=== PATIENT | female | born 1995 | race Caucasian/White ===

== ENCOUNTER 2018-09-30 11:44 | Inpatient (IN) | payer OTHER ==
--- NOTE | 2018-09-30 12:03 | ED ---
Complex/Multi-Sys Presentation - HPI Summary HPI Summary: A 23 y/o F presents to ED with AMS worsening in the past few days. 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 She went to the ED there for her sleep problems and disorganized thoughts, and she was admitted on 09/06/18. She was discharged on 09/25/18 and her parents brought her back home to [place]. At the time of release, her mother says she was OK but anxious. Since her release and traveling back to [place], pt has declined. At bedside, she is drooling, tremulous diffusely, and very rigid. Pt whimpers at bedside and says her tongue is frozen. She was started on Abilify, Trazodone, Lorazepam and Hydroxyzine when she was released from the [place] ED. Her mom did not give the patient the Abilify this AM. PMHx: season allergies. - History Of Current Complaint Chief Complaint: EDAltMentalStatus Time Seen by Provider: 09/30/18 11:54 Hx Obtained From: Family/Mail Handler Sorter - mother, Medical Records Hx From Patient Unobtainable Due To: Altered Mental Status Onset/Duration: Gradual Onset, Lasting Days, Still Present Timing: Constant Severity Currently: Moderate Severity Initially: Moderate Associated Signs And Symptoms: Positive: Other - pos: tremulous, very rigid, drooling, tongue "frozen" Related History: Recent Hospitalization - Allergies/Home Medications Allergies/Adverse Reactions: Allergies Allergy/AdvReac Type Severity Reaction Status Date / Time No Known Allergies Allergy Verified 09/30/18 11:51 Home Medications: Home Medications ARIPiprazole [Aripiprazole] 20 mg PO DAILY 09/30/18 [History Confirmed 09/30/18] LORazepam [Lorazepam] 1 mg PO DAILY PRN 09/30/18 [History Confirmed 09/30/18] hydrOXYzine HCL TAB* [Atarax 25 MG TAB*] 25 mg PO BID PRN 09/30/18 [History Confirmed 09/30/18] traZODone TAB* [Desyrel TAB*] 200 mg PO BEDTIME PRN 09/30/18 [History Confirmed 09/30/18] PMH/Surg Hx/FS Hx/Imm Hx Previously Healthy: Yes Respiratory History: Reports: Hx Seasonal Allergies Opthamlomology History: Denies: Hx Legally Blind EENT History: Denies: Hx Deafness Infectious Disease History: No Infectious Disease History: Denies: Traveled Outside the [place] in Last 30 Days - Family History Known Family History: Positive: Other - [place] - grandparent - Social History Occupation: Student Lives: With Family Review of Systems Positive: Other - pos: drooling ENT: Other - pos: tongue "frozen" Musculoskeletal: Other - pos: tremulous, very rigid All Other Systems Reviewed And Are Negative: Yes Physical Exam - Summary Physical Exam Summary: Appearance: Well-appearing, Slender, sitting on stretcher in rigid posture with arms out and elbows flexed to 90 degrees Skin: Warm, dry, no obvious rash Eyes: sclera anicteric, no conjunctival pallor, pupils are 3mm and reactive, EOMI, no nystagmus ENT: mucous membranes moist, pharynx appears normal Neck: Supple, nontender Respiratory: Clear to auscultation, no signs of respiratory distress Cardiovascular: Tachy, Normal S1, S2. No murmurs. Normal distal pulses in tibial and radial bilaterally. Abdomen: Soft, nontender, normal active bowel sounds present Musculoskeletal: Normal, Strength/ROM Intact Neurological: awake & alert. Patient in general has a rigid posture, there is some resistance to extension of elbows, no cognitive wheel rigidity is noticed. No focal motor deficits noted. Mental status is deficient, patient is able to answer simple question and follow commands, but speech is very soft and nearly inaudible. Speech is slow and mildly dysarthric. Psychiatric: affect is normal, does not appear anxious or depressed Triage Information Reviewed: Yes Vital Signs On Initial Exam: Initial Vitals Temp Pulse Resp BP Pulse Ox 99.1 F 127 18 147/91 98 09/30/18 11:46 09/30/18 11:46 09/30/18 11:46 09/30/18 11:46 09/30/18 11:46 Vital Signs Reviewed: Yes Diagnostics - Vital Signs Vital Signs Temp Pulse Resp BP Pulse Ox 09/30/18 11:46 99.1 F 127 18 147/91 98 - Laboratory Result Diagrams: 09/30/18 12:33 09/30/18 12:33 Lab Statement: Any lab studies that have been ordered have been reviewed, and results considered in the medical decision making process. - EKG 1210 Cardiac Rate: Tachycardia EKG Rhythm: Sinus Tachycardia Summary of EKG Findings: Borderline RAD. Complex Multi-Symp Course/Dx Course Of Treatment: Pt is a 23 y/o F presenting with AMS worsening in recent days. 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 Started on Abilify, Trazodone, Lorazepam and Hydroxyzine during hospital stay. Released on 09/25 and brought home to [place]. Per mom, pt is declining, and at bedside, pt is drooling, diffusely tremulous, very rigid, and nearly mute. Pheysical exam found patient in general has a rigid posture, there is some resistance to extension of elbows, no cognitive wheel rigidity is noticed. No focal motor deficits noted. Mental status is deficient, patient is able to answer simple question and follow commands, but speech is very soft and nearly inaudible. Speech is slow and mildly dysarthric. Clinically she appears to be suffering from NMS. Fortunately her lab studies, in particular renal function and CK level, are normal. She does require supportive care and observation, will be admitted to hospitalist service. Labwork is unremarkable. Tox screen is negative. . Consulted with Dr. Baxter, hospitalist, who will admit patient. - Diagnoses Provider Diagnoses: NMS (neuroleptic malignant syndrome) - Physician Notifications Discussed Care Of Patient With: Chen Baxter - hospitalist Time Discussed With Above Provider: 14:09 Instructed by Provider To: Admit As Inpatient Discharge - Sign-Out/Discharge Documenting (check all that apply): Patient Departure - ADMIT Patient Received Moderate/Deep Sedation with Procedure: No - Discharge Plan Condition: Fair Disposition: ADMITTED TO [facility] - Billing Disposition and Condition Condition: FAIR Disposition: Admitted to [facility] - Attestation Statements Document Initiated by Scribe: Yes Documenting Scribe: Evelyn Gutierrez Provider For Whom Scribe is Documenting (Include Credential): Dr. Romero Maldonado MD Scribe Attestation: Evelyn Ponce, peggyed for Dr. Romero Maldonado MD on 09/30/18 at 1917. Scribe Documentation Reviewed: Yes Provider Attestation: The documentation as recorded by the Evelyn chau accurately reflects the service I personally performed and the decisions made by me, Dr. Romero Maldonado MD Status of Scribe Document: Viewed
[2018-09-30] MEDS ORDERED: LORazepam INJ* 2 MG/ML 1 ML VIAL IV PUSH ONE (12:06)
[2018-09-30] MEDS ORDERED: NS 0.9% 1000 ML** 2,000 ML IV ONE (12:20)
[2018-09-30 13:08] LABS: ABS Basophils 0 10^3/ul (0-0.2); ABS Eosinophils 0 10^3/ul (0-0.6); ABS Lymphocytes 0.7 10^3/ul (1.0-4.8); ABS Monocytes 0.6 10^3/ul (0-0.8); ABS Neutrophils 2.3 10^3/ul (1.5-7.7); ABS Nucleated RBC 0 10^3/ul; Eosinophil % 0.2 %; Hematocrit 40 % (33-41); Hemoglobin 13.9 g/dL (12.0-16.0); Lymphocyte % 18.2 %; Mean Corpuscular HGB Conc 35 g/dL (31-36); Mean Corpuscular Hemoglobin 33 pg (27-31); Mean Corpuscular Volume 95 fL (80-97); Mean Platelet Volume 6.5 fL (7.4-10.4); Nucleated Red Blood Cells % 0.1; Platelet Count 303 10^3/uL (150-450); Red Blood Count 4.16 10^6 /uL (3.70-4.87); Red Cell Distribution Width 12 % (10.5-15); White Blood Count 3.6 10^3/uL (3.5-10.8)
[2018-09-30 13:28] LABS: Acetaminophen < 15 mcg/mL; Alcohol < 10 mg/dL (<10); Salicylate < 2.50 mg/dL (<30)
[2018-09-30 13:32] LABS: HCG Pregnancy < 0.60 mIU/mL
[2018-09-30 13:33] LABS: ALT 14 U/L (7-52); AST 20 U/L (13-39); Albumin 4.7 g/dL (3.2-5.2); Albumin/Globulin Ratio 1.9 (1-3); Alkaline Phosphatase 46 U/L (34-104); Anion Gap 9 mmol/L (2-11); BUN/Creatinine Ratio 14.3 (8-20); Blood Urea Nitrogen 10 mg/dL (6-24); CO2 Carbon Dioxide 26 mmol/L (22-32); Calcium 9.7 mg/dL (8.6-10.3); Chloride 102 mmol/L (101-111); Creatine Kinase 173 U/L (10-223); EGFR African American 124.4 (>60); EGFR Non-African American 102.8 (>60); Globulin 2.5 g/dL (2-4); Glucose 102 mg/dL (70-100); Potassium 3.8 mmol/L (3.5-5.0); Sodium 137 mmol/L (135-145); Total Protein 7.2 g/dL (6.4-8.9)
[2018-09-30] MEDS ORDERED: Acetaminophen TAB* 325 MG PO PRN (15:17)
[2018-09-30] MEDS ORDERED: NS 0.9% 1000 ML** 1,000 ML IV SCH (15:30)
[2018-09-30] MEDS ORDERED: diPHENhydraMINE IV* 50 MG/ML 1 ml VIAL (BENADRYL) IV ONE ×2 (15:56→16:05)
[2018-09-30] MEDS ORDERED: diPHENhydraMINE IV* 25 MG in NS 0.9% 50 ML* 50 ML IVPB PRN (16:33)
[2018-09-30] MEDS: Enoxaparin(*) 40 MG/0.4 ML SYR SUBCUT SCH (17:45)
[2018-09-30] MEDS: Trihexyphenidyl TAB* 2 MG PO PRN (20:17)
--- NOTE | 2018-09-30 20:41 | HP ---
CC: Aby Wilson MD HISTORY AND PHYSICAL: DATE OF ADMISSION: 09/30/18 PRIMARY CARE PROVIDER: Aby Wilson MD HEALTHCARE PROXY: The patient's parents, mother, Alexia and father, Boogie CODE STATUS: Full. Source: Most information obtained from parents at bedside, as pt sleeping after lorazepam. CHIEF COMPLAINT: Muscle stiffness, restlessness, drooling for 5 days. HISTORY OF PRESENT ILLNESS: Ms. Mills is a 23-year-old healthy woman who is presenting after a psychiatric hospitalization with new onset of confusion, drooling, muscle stiffness, and restlessness for 5 days. 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 She had reported to them that she was not sleeping very much and was working on her studies at most hours of the day. She also expressed to them various worries or fears. When asking parents to clarify, they report she would state things like "I don't know who I can trust" or "I don't know what to do." Given the concerns from her peers, she was taken to emergency room on 09/06/18, which is approximately 3 weeks ago. Her parents drove out to [place] and on that day, she was admitted to the adult psychiatric unit for concern for bipolar with psychotic features. During the hospitalization, which lasted until 5 days ago, she had initially been given Seroquel, but was switched to Abilify. She had also been started on trazodone 100 mg nightly for sleep with hydroxyzine and lorazepam p.r.n. for anxiety. Since she was discharged 5 days ago, she has been staying with her parents in [place], [place] and they report that over the last 5 days, she has become progressively more agitated and restless. Her speech was initially slurred, but she eventually just stopped talking as much. She had progressive muscle stiffness interfering with her ability to walk. Given the progression of her symptoms, she was brought to the emergency room. In the emergency room, she was noted to be diffusely tremulous and very rigid. She stated that her "tongue is frozen". She was given 1 L of fluids. She was without focal motor deficits and was able to answer simple questions and follow commands, although she was speaking at a low voice. As her lab work was unremarkable and her tox screen was negative, she was admitted to the hospital for concern for neuroleptic malignant syndrome. She was given 1 dose of 1 mg lorazepam in the ER. PAST MEDICAL HISTORY: 1. Subclinical hypothyroidism. 2. Childhood asthma. MEDICATIONS: Since discharge 5 days ago: 1. Abilify 20 mg daily. 2. Trazodone 100 mg nightly. 3. Hydroxyzine 25 mg q.6 hours p.r.n. anxiety. 4. Lorazepam 1 mg q.12 hours p.r.n. anxiety. ALLERGIES: No known drug allergies. 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 Denies tobacco, alcohol, or other drugs. 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 FAMILY HISTORY: Paternal grandfather with AK, now status post stent. PHYSICAL EXAMINATION GENERAL: Tired-appearing woman, alert and interactive to voice, answers questions appropriately, A and O x3. VITAL SIGNS: afebrile, heart rate low 100s, blood pressure 136/85, respiratory rate 12, oxygen saturation 100% on room air. HEENT: Moist mucous membranes. NECK: Supple. Able to touch chin to chest without pain. LUNGS: Clear to auscultation bilaterally. HEART: Regular rhythm. Tachycardic. No murmurs, gallops, rubs. ABDOMEN: Soft, nontender, nondistended. EXTREMITIES: Warm, well perfused. No edema. NEURO: Notable for diffuse rigidity. Occasional lower extremity myoclonic jerks. Dorsiflexion bilaterally with few beats of clonus. Upper extremities without cogwheel rigidity, but with resistance to flexion and extension of elbows. Strength in upper and lower extremities 5/5 bilaterally. Able to follow commands. PSYCH: Responds to questions appropriately. Has a normal affect and does not appear anxious. Euthymic. SKIN: Warm. No diaphoresis. DIAGNOSTIC STUDIES/LAB DATA: Labs reviewed and significant for normal white blood cells, normal BMP, normal creatine kinase, negative toxicology screen. EKG with sinus tachycardia 107. ASSESSMENT AND PLAN: A 23-year-old previously healthy woman with recent psychiatric admission for new onset bipolar with psychotic features who is presenting after a few weeks on antipsychotics with confusion, drooling, muscle rigidity, and restlessness, found in the ER with new tachycardia and hypertension without concerning lab abnormalities. 1. Muscle rigidity and associated symptoms. Highest on the differential is acute dystonic reaction given the patient's primary symptom is diffuse muscle stiffness, also involving the tongue. However, would not want to miss diagnosis of neuroleptic malignant syndrome, although this is less likely given lack of fever and diaphoresis, and normal CK. However, antipsychotics taken with serotonin modulators does increase the risk for NMS. We will hold her antipsychotic and trazodone. The patient has been given a dose of lorazepam in the emergency room without significant change. We will now trial dose of Benadryl 50 mg IV and follow response. Neuro has been consulted. We will continue to monitor vital signs and neuro exam closely, and check routine labs tomorrow morning as well. At this time, very low suspicion for infection as the patient had no prodrome including fever, headaches, or other viral symptoms and is without meningeal signs. 2. DVT prophylaxis. Lovenox subcu daily. 3. The patient is full code. TIME SPENT: Approximately 60 minutes spent on admission of this patient, more than half of which was spent at bedside for interview and exam. [id number]/[facility] #: [id number] BETHESDA HOSPITALEmma
--- NOTE | 2018-09-30 21:40 | CONS ---
NEUROLOGY CONSULTATION: DATE OF CONSULT: 09/30/18 LOCATION: She is in emergency room to be admitted. REFERRING PROVIDER: Dr. Baxter. CHIEF COMPLAINT: Stiffness, inability to walk. 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 According to the history from the family and the patient, she was working on a project and she stayed up 3 nights in a row. She developed a psychiatric decompensation and was admitted to mental health unit in [place], [place] for 2 weeks. She was started on several mediations. Near the end of hospital mental health admission, she started to develop some tremor and stiffness. It is worsened over the several days that she has been at home in [place]. She was discharged from the hospital in [place] on 09/25/18. Her discharge medications were Abilify 20 mg p.o. daily, Atarax 25 mg p.o. b.i.d. p.r.n., trazodone 200 mg p.o. q.h.s., lorazepam 1 mg p.o. as needed for anxiety. ALLERGIES: She does not have any drug allergies. REVIEW OF SYSTEMS: Negative for recent illnesses. No fevers. She feels that her jaw, neck, and legs are tight. She does not have any headache. No recent fevers or infections. No history of epilepsy or head trauma. No history of cerebrovascular disease. No prior history of psychiatric disease prior to the last month. PHYSICAL EXAM: On examination, she is well nourished and well hydrated. Temperature 97.9, blood pressure 127/81, heart rate running 90 to 110 in sinus on the monitor. Respiratory rate is 17 and oxygen saturation is 100% on room air. Skin is warm and dry. Heart tones are normal. Neurological Exam: Pupils react equally from 5 down to 2.5 mm. Eyes movements are normal. Facial musculature is symmetric with grade 3 hypomimia. Her jaw is held partly open and she has sialorrhea. Speech is soft and slightly dysarthric. Facial sensation is intact. Her motor exam shows cogwheel rigidity of the upper extremities and lower extremities. Lower extremities have more tone than the uppers. There is a fine suspension tremor in both hands and in her feet. Finger taps are slow, but symmetrical in the hands. She is alert and oriented and an excellent detail historian. Memory is intact and language fluent. DIAGNOSTIC STUDIES/LAB DATA: Includes a normal chemistry profile other than borderline glucose of 102, negative serum alcohol level, normal CBC. IMPRESSION: Impression is that of extrapyramidal side effects from her dopamine celeste, Abilify. PLAN: I have recommended some intravenous diphenhydramine and we will reassess after she gets it. She will probably need to be admitted because even if diphenhydramine works it tends to wear off. She likely has recurrent symptoms. She responds well and ultimately she will be able to be discharged perhaps with a few days more of oral diphenhydramine. She should avoid Abilify in the future , particularly if the clinical course is as suspected, specifically, that she gradually resolves and gets back to normal. I will follow her with you. [id number]/[facility] #: [id number] MTDD
[2018-09-30] MEDS ORDERED: Melatonin 3 MG TAB PO PRN (21:50)
[2018-09-30] MEDS: diPHENhydraMINE IV* 50 MG/ML 1 ml VIAL (BENADRYL) SLOW PUSH PRN (23:48)
[2018-10-01] MEDS: diPHENhydraMINE IV* 50 MG/ML 1 ml VIAL (BENADRYL) SLOW PUSH PRN (06:03)
[2018-10-01 07:19] LABS: ABS Basophils 0 10^3/ul (0-0.2); ABS Eosinophils 0 10^3/ul (0-0.6); ABS Lymphocytes 0.8 10^3/ul (1.0-4.8); ABS Monocytes 0.7 10^3/ul (0-0.8); ABS Neutrophils 3.3 10^3/ul (1.5-7.7); ABS Nucleated RBC 0 10^3/ul; Eosinophil % 0.4 %; Hematocrit 41 % (33-41); Hemoglobin 14.1 g/dL (12.0-16.0); Lymphocyte % 16.5 %; Mean Corpuscular HGB Conc 35 g/dL (31-36); Mean Corpuscular Hemoglobin 33 pg (27-31); Mean Corpuscular Volume 95 fL (80-97); Mean Platelet Volume 6.7 fL (7.4-10.4); Nucleated Red Blood Cells % 0.1; Platelet Count 301 10^3/uL (150-450); Red Blood Count 4.28 10^6 /uL (3.70-4.87); Red Cell Distribution Width 12 % (10.5-15); White Blood Count 4.9 10^3/uL (3.5-10.8)
[2018-10-01 07:41] LABS: ALT 15 U/L (7-52); AST 20 U/L (13-39); Albumin 4.7 g/dL (3.2-5.2); Albumin/Globulin Ratio 1.8 (1-3); Alkaline Phosphatase 49 U/L (34-104); Anion Gap 11 mmol/L (2-11); BUN/Creatinine Ratio 13.1 (8-20); Blood Urea Nitrogen 8 mg/dL (6-24); CO2 Carbon Dioxide 24 mmol/L (22-32); Calcium 9.7 mg/dL (8.6-10.3); Chloride 104 mmol/L (101-111); EGFR African American 145.8 (>60); EGFR Non-African American 120.5 (>60); Globulin 2.6 g/dL (2-4); Glucose 90 mg/dL (70-100); Potassium 3.7 mmol/L (3.5-5.0); Sodium 139 mmol/L (135-145); Total Protein 7.3 g/dL (6.4-8.9)
[2018-10-01 07:42] LABS: CKMB ng/mL 2.8 ng/mL (0.6-6.3)
[2018-10-01 08:00] LABS: TSH (Thyroid Stimulating Horm) 4.51 mcIU/mL (0.34-5.60)
[2018-10-01] MEDS ORDERED: hydrOXYzine HCL TAB* 25 MG PO PRN (08:38)
[2018-10-01] MEDS: Trihexyphenidyl TAB* 2 MG PO PRN (09:21)
[2018-10-01] MEDS: LORazepam INJ* 2 MG/ML 1 ML VIAL IV PUSH SCH ×2 (11:38→20:28)
--- NOTE | 2018-10-01 11:54 | CONSULT ---
Consult Consult: Consult for possible dystonia/ adverse drug reaction CC " I was not sleeping" The patient was brought to [facility] by her parents after she was drooling and not talking. The patient reported that she had trouble swallowing and couldnt move or talk or walk. Per her parents who were at the bedside, she was recently admitted to a psychiatric facility in [place] called [facility], where she received trazodone and abilify PO. At that time she was paranoid and thinking that her advisor was against her. She denied fever nausea vomiting. No recent diet pills or energy drinks. She came back to [place] after being discharged from [place]. Patient was not sleeping for 3 days. The patient denied suicidal and or homicidal ideation intent or plan. The patient denied auditory and/ or visual hallucinations. PAST PSYCHIATRIC HISTORY: Prior Diagnosis : Unspecified Psychotic disorder. History of past Psychiatric Hospitalizations: One prior psychiatric admission last week at [facility] in [place] . History of past suicide/homicide attempts : Denied past suicide attempts. Denied past homicidal incidents. Outpatient follow-up: none Medications: Past trials of medications include abilify and trazodone Guardianship: None. FAMILY HISTORY: - Suicide: Denied family history of suicide. - Mental illness: Denied a history of mental health in immediate family members. - Substance abuse: Denied substance abuse among family members. SUBSTANCE ABUSE HISTORY: Denied using alcohol, tobacco, heroin and cocaine other illicit substances. Denied abusing pills not prescribed . Denied past Substance abuse treatment. SOCIAL HISTORY: Born in [place]. 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 No children and is single. - Relationship: - Legal history: Denied - service history: Denied PAST MEDICAL HISTORY: Denied heart disease, diabetes, cancer and/ or other medical conditions. - Allergies: Denied drug allergies. Physical Exam See H&P admission note Mental Status Exam on Admission APPEARANCE : 23 year old female who appears stated age. Patient is not malodourous, and appears to have fair hygiene and grooming. BEHAVIOR: Cooperative , calm EYE CONTACT: Fair PSYCHOMOTOR ACTIVITY: Mild psychomotor retardation. MOVEMENTS: No abnormal movements observed. SPEECH : slow and low volume MOOD : "scared " AFFECT : Quality is dysphoric, blunted , THOUGHT PROCESS: formulated and organized in a logical, linear goal directed manner. THOUGHT CONTENT: paranoid ideation PERCEPTION: No current auditory or visual hallucinations. Doesnt appear to be responding to internal cues. No evidence of depersonalization , de-realization, or illusions SUICIDALITY Denied suicidal ideation, intent or plan. HOMICIDALITY Denied homicidal ideation, intent or plan. Insight/judgment: Poor insight and judgment ORIENTATION: Oriented to self, location, and time. Diagnosis: Dystonic Reaction, unspecified Catatonia, Unspecified Psychotic Disorder. Assessment: 23 year old with no prior psychiatric hospitalization until a few weeks ago presents with features of psychosis, dystonia and catatonia. Plan #Obtain medical records from past hospitalization from [place] #Supportive care IV fluids per medicine recommendations. # Stop all anti-psychotic medications for now D/C Benadryl, hydroxyzine, and artane # Unlikely NMS: WBC WNL, no fever, CK normal and vital signs within normal limits. # To consider NMDA receptor encephalitis after monitoring response to current plan for treatment. #Ativan 1mg Q8H IV scheduled for catatonia #Cogentin 1mg IV BID for dystonic reaction #B-HCG was ordered and results are negative. #Psychiatry will continue to follow the patient. Oliver Mcknight MD #[id number]
[2018-10-01] MEDS: Benztropine INJ* 1 MG/ML 2 ML AMP SLOW PUSH SCH ×2 (12:44→20:29)
[2018-10-01 15:36] LABS: C Reactive Protein < 1.00 mg/L (<8.01)
[2018-10-01] MEDS: Enoxaparin(*) 40 MG/0.4 ML SYR SUBCUT SCH (16:29)
[2018-10-01] MEDS ORDERED: Gadoteridol* (CONTRAST) 279.3 MG/ML 10 ML IV ONE (16:49)
--- NOTE | 2018-10-01 17:10 | CONS ---
NEUROLOGY CONSULT FOLLOWUP: DATE OF FOLLOWUP: 10/01/18 HOSPITALIST: Chen Baxter MD LOCATION: She is an inpatient in room 445. CHIEF COMPLAINT: Impaired mobility, confusion. INTERVAL HISTORY: Since yesterday, Lelia is perhaps moving a little bit better , but still very impaired. She is still very slow to move and has developed a lot of anxiety and then perhaps some paranoia. She made some statements early this morning when I stopped saying that she had misled people yesterday and that she wanted to make things right today. She did not sleep last night at all hardly according to her nurses. I started some hydroxyzine this morning. This afternoon, she has been seen in consultation by Dr. Oliver Mcknight of psychiatry. I reviewed his consultation. He notes evidence of psychosis, dystonia, and catatonia also possibly. He recommended switching to Cogentin from Artane and discontinuing Benadryl and hydroxyzine. He also recommended avoiding antipsychotic medications for now. MEDICATIONS: Are reviewed and she is currently on: 1. Cogentin 1 mg slow push b.i.d. 2. Lovenox 40 mg subcutaneous q.24 hours. 3. Lorazepam 1 mg IV push q.8 hours, 4. Melatonin 3 mg p.o. q.h.s. PHYSICAL EXAMINATION: On exam, she is thin but well hydrated. Temperature 98.7 , blood pressure 109/68, heart rate currently in the 60s and regular. She was awake this morning and also this afternoon when I arrived. She did have eye blinders on. Speech is soft, but clear. She has very mild tremor in the hands. There is some increased muscle tone, but no spasticity or cogwheeling. There is no rest tremor. Finger taps are mildly slowed in both hands. Facial expression is decreased. There is paucity of spontaneous movement. Verbal output is delayed. LABORATORY DATA: From today notable for a normal chemistry profile including liver enzymes and normal CBC. At this point, I am not convinced that she is having extrapyramidal side effects from the medications alone. It may be that, that is part of it but that she is also developing catatonia. Possibility of an autoimmune encephalitis has also been raised. I will send out blood work for paraneoplastic antibodies. I spoke with Dr. Baxter earlier about an EEG which has been ordered and an MRI of the brain which has also been ordered. It might be worthwhile to do a CT scan of her abdomen and pelvis to look for an ovarian teratoma. At some point, if the clinical course points that way, a lumbar puncture would be necessary. I do not see any evidence to suggest an infectious encephalitis at this pout, but an autoimmune process is certainly possible. I will send in some additional blood work for autoimmune disorders that could cause encephalopathy. [id number]/[facility] #: [id number] MTDEmma
--- NOTE | 2018-10-01 21:28 | PN ---
Subjective Interval History: Pt still with muscle rigdity/slowness. Tells me today that "it keeps repeating over and over" but unable to clarify what. States she has vicenta robert. When asked if she feels like she's been hospitalized like this before, she states "yes and doing things over and over is the definition of insanity". She states that she wants to "stop trying." Eval by psych and stared on a 3rd anticholinergic for dystonia, alone with standing benzo for concern over catatonia. Objective Active Medications: Acetaminophen (Tylenol Tab*) 650 mg PO Q4H PRN PRN Reason: FEVER/PAIN Benztropine Mesylate (Cogentin Inj*) 1 mg SLOW PUSH BID [facility] Last Admin: 10/01/18 20:29 Dose: 1 mg Enoxaparin Sodium (Lovenox(*)) 40 mg SUBCUT Q24H [facility] Last Admin: 10/01/18 16:29 Dose: Not Given Lorazepam (Ativan Inj*) 1 mg IV PUSH Q8H [facility] Last Admin: 10/01/18 20:28 Dose: 1 mg Melatonin (Melatonin) 3 mg PO BEDTIME PRN PRN Reason: SLEEP Last Admin: 09/30/18 23:48 Dose: 3 mg Vital Signs - 8 hr 10/01/18 10/01/18 15:30 20:28 Temperature 97.6 F Pulse Rate 109 Respiratory 16 18 Rate Blood Pressure 129/81 (mmHg) O2 Sat by Pulse 97 Oximetry Oxygen Devices in Use Now: None Result Diagrams: 10/01/18 06:03 10/01/18 06:03 Microbiology and Other Data: Microbiology 09/30/18 20:56 Aerobic Blood Culture - Preliminary Blood Venous No Growth Day 1 Anaerobic Blood Culture - Preliminary No Growth Day 1 Assess/Plan/Problems-Billing Assessment: 23W previously healthy but with recent hospitalization for concern for bipolar with psychotic features, presents 5 days after psych discharge with muscle rigidity, mental slowing, and drooling. Without fevers, HTN, or elevated CK. Leading on differential is acute dystonia and EPS from antipsychotics, although still not improved with medications. Also concern for catatonia as part of newly diagnosed psychiatric illness. Must also be diligent not to miss rare but significant dx such as NMDA receptor encephalitis. - Patient Problems (1) Altered mental status Comment: MRI not revealing. - stopping prior anticholinergics and starting benztropine and standing lorazepam, given psych concern for possible catatonia, will re-evaluated every day for DC of standing benzos - seems less likely EPS from prior antipsychotic use - appreciate Neuro input, likely will need CSF studies - will discuss transvaginal US for teratoma screening given concern for autoimmune encephalitis (2) DVT prophylaxis Comment: on lovenox Status and Disposition: Still with ongoing inpatient work up.
[2018-10-02] MEDS: LORazepam INJ* 2 MG/ML 1 ML VIAL IV PUSH SCH ×3 (03:35→20:29)
[2018-10-02] MEDS: Benztropine INJ* 1 MG/ML 2 ML AMP SLOW PUSH SCH ×2 (10:05→20:30)
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
[2018-10-02] MEDS ORDERED: NS 0.9% 1000 ML** 1,000 ML IV ONE (10:54)
[2018-10-02] MEDS: Lithium Carbonate CAP 150 MG ** CAPSULE PO SCH ×2 (13:52→20:29)
--- NOTE | 2018-10-02 14:58 | CONS ---
NEUROLOGY CONSULT FOLLOWUP: DATE OF FOLLOWUP: 10/02/18 LOCATION: She is an inpatient in room 449. HOSPITALIST: Dr. Baxter. CHIEF COMPLAINT: Movement disorder. INTERVAL HISTORY: Since yesterday, Lelia is doing much better. I reviewed Dr. Mcknight's followup consultation note and she was able to provide more meaningful history. She has not noticed any tremor today. MEDICATIONS: Reviewed and she is currently on: 1. Cogentin 1 mg b.i.d. 2. Lovenox 40 mg subcutaneous q.24 hours. 3. Lorazepam 1 mg IV q.8 hours. 4. Melatonin 3 mg p.o. q.h.s. 5. [place] carbonate 150 mg p.o. b.i.d., just started today. PHYSICAL EXAM: Lelia was just observed, but not examined today. Vital signs reviewed and show she has been afebrile, most recent blood pressure 116/74, heart rate 93, respiratory rate 16. Oxygen saturation is 100% on room air. Her facial expression is much more animated. Her upper extremity movements are also more fluid. She does not have any sustention tremor. Her speech is clear and much more productive. IMPRESSION AND PLAN: Lelia is doing much better. She appears to probably have had catatonia in addition to her psychosis. She is doing much better since the addition of lorazepam. Paraneoplastic antibodies have been sent out for serum. If those are positive or if she develops a relapse of her encephalopathy, then she may need further workup to include a lumbar puncture to look also for paraneoplastic antibodies. I will continue to follow her while she is here in the hospital. [id number]/[facility] #: [id number] [facility]ITAL[facility]ma
[2018-10-02] MEDS: Enoxaparin(*) 40 MG/0.4 ML SYR SUBCUT SCH (16:03)
--- NOTE | 2018-10-02 20:49 | EEG ---
ELECTROENCEPHALOGRAPHY: DATE OF STUDY: 10/01/18 - ROOM #449 REFERRING PHYSICIAN: Dr. Sharp. LOCATION: She is an inpatient in room 449. CLINICAL PROBLEM: Psychosis, rigidity, possible encephalopathy. MEDICATIONS: Include: 1. Melatonin. 2. Cogentin. 3. Lorazepam. 4. Lovenox. REPORT: This 19-channel EEG is remarkable for background rhythms consisting of a well-formed alpha rhythm in the occipital derivations at about 10.5 to 11 cycles per second, which is symmetric. Moderate voltage beta rhythms are seen centrally and bifrontally. Eye movement artifact is frequent. The patient does not drowse or sleep during the recording. Activation procedures are not attempted. There are no clinical events. There are no focal, lateralized, or epileptiform abnormalities. CLINICAL IMPRESSION: Normal awake EEG. [id number]/[facility] #: [id number] [facility]
--- NOTE | 2018-10-02 21:11 | PN ---
Subjective Interval History: Normal Brain MRI and EEG. Pt more animated today - more interactive and alert with this science writer and her family. Noted that psych started on lithium today. Discussed possibility of ordering transvaginal ultrasound - pt and family aware of indications and our current differential. Pt prefers to wait for now. Objective Active Medications: Acetaminophen (Tylenol Tab*) 650 mg PO Q4H PRN PRN Reason: FEVER/PAIN Benztropine Mesylate (Cogentin Inj*) 1 mg SLOW PUSH BID [facility] Last Admin: 10/02/18 20:30 Dose: 1 mg Enoxaparin Sodium (Lovenox(*)) 40 mg SUBCUT Q24H [facility] Last Admin: 10/02/18 16:03 Dose: Not Given [place] Carbonate ([place] Carbonate Cap) 150 mg PO BID [facility] Last Admin: 10/02/18 20:29 Dose: 150 mg Lorazepam (Ativan Inj*) 1 mg IV PUSH Q8H [facility] Last Admin: 10/02/18 20:29 Dose: 1 mg Melatonin (Melatonin) 3 mg PO BEDTIME PRN PRN Reason: SLEEP Last Admin: 09/30/18 23:48 Dose: 3 mg Vital Signs - 8 hr 10/02/18 10/02/18 10/02/18 13:33 15:15 15:45 Temperature 98.8 F 98.8 F Pulse Rate 94 94 Respiratory 16 16 16 Rate Blood Pressure 117/78 117/78 (mmHg) O2 Sat by Pulse 100 100 Oximetry 10/02/18 10/02/18 19:23 20:29 Temperature 98.7 F Pulse Rate 116 Respiratory 14 18 Rate Blood Pressure 116/78 (mmHg) O2 Sat by Pulse 97 Oximetry Oxygen Devices in Use Now: None Result Diagrams: 10/01/18 06:03 10/01/18 06:03 Microbiology and Other Data: Microbiology 09/30/18 20:56 Aerobic Blood Culture - Preliminary Blood Venous No Growth Day 1 Anaerobic Blood Culture - Preliminary No Growth Day 1 Assess/Plan/Problems-Billing Assessment: 23W previously healthy but with recent hospitalization for new onset bipolar with psychotic features, presents 5 days after psych discharge with muscle rigidity, mental slowing, and drooling. Without fevers, HTN, or elevated CK. Differential includes catatonia, as part of new psych illness vs acute dystonia and EPS from antipsychotics. With slow response to treatment for both (benzo and anticholinergic). Must also consider rare but significant dx such as autoimmune encephalitis. - Patient Problems (1) Altered mental status Comment: MRI/EEG not revealing. - cont benztropine and lorazepam; pt with slow response but improving - appreciate Neuro and Psych input - started on lithium 10/02 - (2) DVT prophylaxis Comment: on lovenox Status and Disposition: Still with ongoing inpatient work up.
[2018-10-03] MEDS: LORazepam INJ* 2 MG/ML 1 ML VIAL IV PUSH SCH ×4 (03:15→21:19)
[2018-10-03] MEDS: Lithium Carbonate CAP 150 MG ** CAPSULE PO SCH (08:02)
[2018-10-03] MEDS: Benztropine INJ* 1 MG/ML 2 ML AMP SLOW PUSH SCH ×2 (08:02→21:13)
[2018-10-03] MEDS ORDERED: OLANzapine TAB* 5 MG PO ONE (08:36)
[2018-10-03] MEDS ORDERED: LORazepam INJ* 2 MG/ML 1 ML VIAL IV PUSH ONE (08:53)
[2018-10-03] MEDS ORDERED: Lorazepam PYXIS KEY PRN (08:55)
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
[2018-10-03 14:33] LABS: Ceruloplasmin 23.4 mg/dL
[2018-10-03 15:14] LABS: Copper Level 1.06 mcg/mL (0.75-1.45)
[2018-10-03] MEDS: Enoxaparin(*) 40 MG/0.4 ML SYR SUBCUT SCH (16:22)
--- NOTE | 2018-10-03 19:04 | PN ---
Subjective Interval History: Started on Seroquel nightly. Improved motor function today but still slow, still with some myoclonic jerks noted. Transvaginal ultrasound negative for teratoma. Psych likely to take patient on Saturday. Objective Active Medications: Acetaminophen (Tylenol Tab*) 650 mg PO Q4H PRN PRN Reason: FEVER/PAIN Benztropine Mesylate (Cogentin Inj*) 1 mg SLOW PUSH BID [facility] Last Admin: 10/03/18 08:02 Dose: 1 mg Enoxaparin Sodium (Lovenox(*)) 40 mg SUBCUT Q24H [facility] Last Admin: 10/03/18 16:22 Dose: Not Given [place] Carbonate ([place] Carbonate Cap) 300 mg PO BID [place] Lorazepam (Ativan Inj*) 1 mg IV PUSH Q6H [facility] Last Admin: 10/03/18 14:21 Dose: 1 mg Melatonin (Melatonin) 3 mg PO BEDTIME PRN PRN Reason: SLEEP Last Admin: 09/30/18 23:48 Dose: 3 mg Miscellaneous (Ativan Pyxis Ruelas) 1 ea N/A .PYXIS RUELAS PRN PRN Reason: PER PROTOCOL Quetiapine Fumarate (Seroquel Tab*) 100 mg PO BEDTIME [facility] Vital Signs - 8 hr 10/03/18 10/03/18 10/03/18 12:24 14:21 16:25 Temperature Pulse Rate Respiratory 16 16 16 Rate Blood Pressure (mmHg) O2 Sat by Pulse Oximetry 10/03/18 16:33 Temperature 98.9 F Pulse Rate 117 Respiratory 20 Rate Blood Pressure 127/89 (mmHg) O2 Sat by Pulse 97 Oximetry Oxygen Devices in Use Now: None Result Diagrams: 10/01/18 06:03 10/01/18 06:03 Microbiology and Other Data: Microbiology 09/30/18 20:56 Aerobic Blood Culture - Preliminary Blood Venous No Growth Day 1 Anaerobic Blood Culture - Preliminary No Growth Day 1 Assess/Plan/Problems-Billing Assessment: 23W previously healthy but with recent hospitalization for new onset bipolar with psychotic features, presents 5 days after psych discharge with muscle rigidity, mental slowing, and drooling. Without fevers, HTN, or elevated CK. Differential includes catatonia, as part of new psych illness vs acute dystonia and EPS from antipsychotics. With slow response to treatment for both (benzo and anticholinergic). Must also consider rare but significant dx such as autoimmune encephalitis. - Patient Problems (1) Altered mental status Comment: MRI/EEG not revealing. - cont benztropine and lorazepam; pt with slow response but improving - appreciate Neuro and Psych input - started on lithium and quetiapine (2) DVT prophylaxis Comment: on lovenox Status and Disposition: Likely to BSU on Saturday.
--- NOTE | 2018-10-03 19:08 | CONS ---
CC: Dr. Mcknight * NEUROLOGY FOLLOWUP CONSULT NOTE: DATE OF FOLLOWUP: 10/03/18 LOCATION: She is an inpatient in room 449. HOSPITALIST: Dr. Chen Baxter. CHIEF COMPLAINT: Stiffness, tremors. INTERVAL HISTORY: Since yesterday, Lelia continues to improve. She feels that her balance is fine and no longer experiences stiffness in her legs. She has not noticed any problems with tremor. I reviewed Dr. Mcknight's followup notes. MEDICATIONS: Reviewed and she is on: 1. Lovenox 40 mg subcutaneous q.[address] [place] 300 mg p.o. b.i.d. 3. Lorazepam 1 mg IV q.6 hours. 4. Melatonin 3 mg p.o. q.h.s. p.r.n. insomnia. 5. Quetiapine 100 mg p.o. q.h.s. PHYSICAL EXAM: She is thin but appears well hydrated. Temperature 98.1, blood pressure 132/92, heart rate in the 70s. Facial musculature reveals mild hypomimia. There is no sustention tremor. Speech is soft but clear. I did not ambulate her. IMPRESSION AND PLAN: Lelia's motor symptoms have improved considerably. I suspect catatonia as opposed to reaction to her dopamine blocking agents. I did order a lab test for Daniel's disease. Her ceruloplasmin level is normal and the rest are pending. Paraneoplastic antibodies will probably take another week or more. If she has a relapse of her encephalopathy and motor symptoms or if her paraneoplastic antibody profile comes back with a positive a lumbar puncture. At this point, given her improvement, I do not think it is necessary at this point in time. [id number]/[facility] #: [id number] [facility]
[2018-10-03] MEDS ORDERED: Lithium Carbonate CAP 150 MG ** CAPSULE PO SCH (21:00)
[2018-10-03] MEDS ORDERED: QUEtiapine TAB* 100 MG PO SCH (21:00)
[2018-10-04] MEDS: LORazepam INJ* 2 MG/ML 1 ML VIAL IV PUSH SCH ×2 (04:54→08:40)
[2018-10-04 08:11] VITALS: BP 116/76
[2018-10-04] MEDS: Benztropine INJ* 1 MG/ML 2 ML AMP SLOW PUSH SCH (08:40)
[2018-10-04] MEDS ORDERED: Lithium Carbonate TAB* 300 MG PO SCH (09:00)
--- NOTE | 2018-10-05 04:35 | DS ---
CC: Dr. Sharp; Dr. Mcknight * DISCHARGE SUMMARY: DATE OF ADMISSION: 09/30/18 DATE OF DISCHARGE: 10/04/18 PCP: Dr. Aby Wilson. HEALTHCARE PROXY: Alexia, mother. CODE STATUS: Full. DISPOSITION: To the Behavioral Science Unit at [facility]. CONDITION: Improved. PRIMARY DIAGNOSES: 1. Psychosis with catatonia. 2. Extrapyramidal symptoms. 3. Bipolar with psychotic features. CONSULTS: Neurology, Dr. Sharp; Psychiatry, Dr. Mcknight MEDICATIONS ON TRANSFER: 1. [place] 300 mg twice a day. 2. Quetiapine 100 mg nightly. 3. Lorazepam 1 mg IV q.6 hours standing. 4. Benztropine 1 mg IV b.i.d. standing. 5. Acetaminophen 650 mg every 4 hours as needed for pain. 6. Melatonin 3 mg nightly. 7. Lovenox 40 mg subcu every 24 hours. HISTORY OF PRESENT ILLNESS: Ms. Mills is a 23-year-old healthy woman, who is presenting 5 days after discharge from a psychiatric hospitalization with new onset of confusion, drooling, muscle stiffness, and restlessness for 5 days. Her parents report that last month, she was in her usual state of good health and she was studying for a defence of her PhD, missing several nights of sleep. It is unclear if she was staying up in order to prepare or if early symptoms of patti were causing several nights without sleep. She then started to sound more confused to her parents on the phone expressing various worries and fears which sounded somewhat paranoid saying thing such as "I don't know who I can trust." Given the concerns from her peers at the school, she was taken to the emergency room on 09/06/18. Her parents drove out to [place] that day where she began a 3-week admission in the adult psychiatric unit for concern for bipolar with psychotic features. She was discharged from that hospitalization 5 days prior to presentation at [facility]. Over the last 5 days, she had been taking Abilify as well as trazodone for sleep, hydroxyzine for anxiety , and lorazepam for anxiety. She was staying with her parents back in [facility] and they reported she had become progressively more agitated and restless. Her speech was becoming slurred and she began talking less and only talking in a very quiet voice. Notably, she had progressive muscle stiffness interfering with her ability to walk or use her extremities. Given the progression of her symptoms, she was brought to the emergency room. HOSPITAL COURSE: In the emergency room, she was noted to be diffusely tremulous and very rigid. She stated that her "tongue is frozen." She was given fluids and noted to be without focal motor deficits and able to follow simple commands. Her lab workup was unremarkable and her tox screen was negative and she was admitted to the medical service for management for extrapyramidal symptoms from her antipsychotic as well as concern for an MS. On the medical service, an MS was deemed highly unlikely given lack of fevers, autonomous dysfunction, and also given normal CPK level. The patient was given lorazepam and multiple different anticholinergics with very little response for the first couple of days of her hospitalization. Neurology was consulted as well for acute dystonia and they recommended brain MRI and performed an EEG, both of which were normal. Psychiatry was also consulted and evaluated the patient and thought that her symptoms were primarily from psychosis with signs of catatonia and possibly contribution from extrapyramidal symptoms. She was put on standing benztropine and Ativan and eventually started on [place] and then with the addition of nightly Seroquel. Given possibility of autoimmune encephalitis, the patient underwent a transvaginal ultrasound which was negative for ovarian mass. By day 4 of hospitalization, the patient was noted to be progressively more alert and interactive and appropriate in conversation. She wanted to ambulate around the floors, but given the elopement risk, she had a bed alarm on, which would frequently alert the staff, which would make the patient very anxious. She reports she feels like she is trapped in her room and very startled by all the various noises on the medical floor. For this reason given all underlying medical illnesses have been ruled out, she was deemed appropriate for admission to the psychiatric unit. The patient was amenable to this plan. PHYSICAL EXAMINATION: On day of discharge, vital signs: Afebrile. Heart rate 90s, blood pressure 116/76, respiratory rate 12, oxygen saturation 100% on room air. In general: Well-appearing woman, calm and cooperative, occasionally saying nonsensical sentence, somewhat delayed responses to questions with intense eye contact. Noted to have mild psychomotor retardation. Heart: Regular rate and rhythm. No murmurs, gallops, rubs. Chest: Clear to auscultation bilaterally. Abdomen: Soft, nontender, nondistended. Lower extremities: Warm and well perfused. No edema. Psych: A and O x3. Mildly restricted affect. No overt delusions or paranoia, although occasionally seems suspicious. Has insight into her illness. PERTINENT STUDIES: A brain MRI, 10/01/18, no acute intracranial abnormality. An EEG, 10/02/18, normal awake EEG. Transvaginal ultrasound, 10/03/18, unremarkable exam. DISCHARGE PLAN: The patient is to continue her psychiatric care in the behavioral science unit. Her parents have been called and made aware of the plan and they are going to visit her today. Further care as per psychiatric team as the patient has no further medical needs. TIME SPENT: Approximately 60 minutes spent on discharge of this patient, more than half of which was spent with care coordination or at the bedside for interview and exam. [id number]/[facility] #: [id number] RADHA
[2018-10-07 11:39] LABS: Urine Collection Duration 24 h
== END 2018-10-04 14:24 | DRG 885 ==
LOC: ED 11:44 → MEDTELE 15:17
PROVIDERS: ADMIT Internal Medicine; ATTEND Internal Medicine
DX: F23 Brief psychotic disorder (principal); G93.40 Encephalopathy, unspecified; G25.9 Extrapyramidal and movement disorder, unspecified; G25.70 Drug induced movement disorder, unspecified; T44.995A Adverse effect of other drug primarily affecting the autonomic nervous system, initial encounter; Y92.9 Unspecified place or not applicable; F06.1 Catatonic disorder due to known physiological condition; G24.9 Dystonia, unspecified; E02 Subclinical iodine-deficiency hypothyroidism; F31.9 Bipolar disorder, unspecified; R41.82 Altered mental status, unspecified; Z79.899 Other long term (current) drug therapy; Z82.49 Family history of ischemic heart disease and other diseases of the circulatory system
CPT/HCPCS: 36415; 70553; 71046; 76856; 80053; 80320; 80329; 82390; 82525; 82550; 82553; 83519; 83520; 83605; 84443; 84702; 85025; 85652; 86038; 86140; 86255; 86256; 87040; 93005; 95816; 99284; A9270-GY; A9579; G0480; J0515; J1200; J2060

== ENCOUNTER 2018-10-04 12:36 | Inpatient (IN) | payer OTHER ==
[2018-10-04] MEDS ORDERED: Acetaminophen TAB* 325 MG PO PRN (16:29)
[2018-10-04] MEDS: LORazepam TAB(*) 1 MG PO SCH ×2 (17:46→21:00)
[2018-10-04] MEDS: Melatonin 3 MG TAB PO PRN (20:59)
[2018-10-04] MEDS: Lithium Carbonate TAB* 300 MG PO SCH (21:00)
[2018-10-04] MEDS: Benztropine TAB* 1 MG PO SCH (21:00)
[2018-10-04] MEDS: QUEtiapine TAB* 100 MG PO SCH (21:00)
[2018-10-05] MEDS: LORazepam TAB(*) 1 MG PO SCH ×5 (06:10→21:42)
[2018-10-05] MEDS: Benztropine TAB* 1 MG PO SCH (09:58)
[2018-10-05] MEDS: Lithium Carbonate TAB* 300 MG PO SCH ×2 (09:58→21:43)
--- NOTE | 2018-10-05 18:42 | HP ---
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 While in the hospitalist service, she was seen by Psychiatry twice and she was seen by Neurology and Abilify was replaced by quetiapine. The patient was felt by Dr. Mcknight to just be experiencing symptoms of catatonia. The patient improved in the hospitalist service and on 10/04/18, she was communicating verbally, ambulating without difficulty. She was transferred to the behavioral service unit for continuation of her psychiatric care. She was admitted on emergency status. HISTORY OF PRESENT ILLNESS: The patient relates that last month while at school at the [employer], she was preparing for an exam that had both written and an oral components; she procrastinated and she started staying up late to study, she was able to stay up for about 3 nights to do work, she did not feel tired, she became increasingly paranoid, she started verbalizing grandiose and episcopal delusions, she felt she was God. She called her parents who live in [place], [place] to report that she was not feeling safe. The parents contacted her roommate, who then alerted emergency services. She was taken to [facility] in [place], [place], where she was psychiatrically admitted and treated for bipolar 1 with psychotic features and she was discharged after 2-1/2 weeks on Abilify and on trazodone. The patient' s parents drove to [place] and drove her back to their home in [place], [place]. The patient after about 5 days on the Abilify post discharge started experiencing symptoms of confusion, muscle stiffness, drooling, inability to communicate verbally, and akathisia. REVIEW OF PSYCHIATRIC SYMPTOMS: The patient reports this was her first manic episode with insomnia, decreased need for sleep, increased goal directedness, grandiosity, racing thoughts, and pressured speech. She denies previous depressive symptoms. The patient endorses excessive worrying, irritability, muscle tension, obsessive thoughts about perfection, and disappointment when she cannot live up to the high standards she set for herself. She has had occasional panic attacks. She denies social or performance anxiety. She denies any previous diagnosis of ADHD or learning disorder. She denies symptoms of eating disorder. She denies any history of trauma or abuse or PTSD symptoms. PAST MEDICAL HISTORY: Remarkable for seasonal allergies for which she occasionally takes Benadryl. She denies any history of head trauma with loss of consciousness, seizures, or surgeries. She is followed by Dr. Aby Wilson in [place], [place]. PAST SURGICAL HISTORY: Negative. FAMILY HISTORY: The patient denies any family history of psychiatric illnesses or completed suicide. PERSONAL AND SOCIAL HISTORY: The patient is the oldest of 4 children from an intact family with parents. Her parents live in [place] with the patient's 8-year-old sister, 23-year-old brother and his . The patient has a 18-year-old sister, who is attending [employer] in [place], [place]. The patient describes a happy childhood free of trauma or abuse. She did well in school. She graduated from [employer] She then completed undergraduate studies at [employer]. She is currently attending the [employer] in [place] in a PhD program that she has 3 more years to complete. The patient is a Amish. She attends services regularly. She identifies as heterosexual. She has neither dated nor being sexually active. 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 REVIEW OF MEDICAL SYMPTOMS: Negative. PHYSICAL EXAMINATION Please refer to Dr. Baxter's history and physical and subsequent progress notes on this patient while she was admitted in the hospitalist service. MENTAL STATUS EXAMINATION: Finds a thin-framed, 23-year-old white female, who looks her stated age. She is somewhat disheveled in her appearance. She is casually dressed in a T-shirt and pants. She makes intense eye contact, appears at times to be internally stimulated. She is cooperative with answering questions but has long latencies. Her affect is flat. Mood is euthymic. The patient moves somewhat slowly. Thoughts are linear and goal directed for the most part, but she endorses paranoid and hyperreligious delusions. She denies suicidal/homicidal ideation or urges to self-mutilate, and she contracts for safety. Insight and judgment are impaired. Impulse control is good in this setting. She is alert. She is oriented to time, place , and person. Attention, memory, and concentration are all poor. Fund of knowledge is adequate. Intelligence is estimated to be in normal average range. SUMMARY: A 23-year-old female, who was accepted as a transfer from the hospitalist service where she was treated for side effects of medication. The patient had her first psychiatric hospitalization the month prior and was discharged on Abilify and trazodone. The patient has diagnosis of bipolar 1 disorder, severe, most recent episode manic with psychotic features. She comes to our service on lithium 300 mg twice daily, quetiapine 100 mg nightly, lorazepam 1 mg p.o. q.6 hours p.r.n. for anxiety, benztropine 1 mg b.i.d. to prevent EPS, and melatonin 3 mg at bedtime. The patient denies any history of substance abuse. She also denies any family history of psychiatric illnesses or completed suicide. She describes stressors of having had withdraw recently from school because of her psychotic break. DIAGNOSTIC IMPRESSIONS: 1. Bipolar 1 disorder, most recent episode manic, with psychotic features. 2. Unspecified anxiety disorder. TREATMENT PLAN: Admit to mental health unit, 15-minute checks, full code status. Legal status is emergency. Initiate comprehensive milieu, individual, and group psychotherapeutic supports. Medication management will continue the current regimen of lithium, quetiapine, lorazepam, and benztropine. Discharge planning will involve coordination of aftercare with providers either locally or in [place] in concertation with her family. [id number]/[facility] #: [id number] RADHA
[2018-10-05] MEDS: QUEtiapine TAB* 100 MG PO SCH (21:42)
[2018-10-05] MEDS: Melatonin 3 MG TAB PO PRN (21:42)
[2018-10-06] MEDS: LORazepam TAB(*) 1 MG PO SCH ×4 (06:36→20:43)
[2018-10-06] MEDS: Lithium Carbonate TAB* 300 MG PO SCH ×2 (10:06→20:43)
--- NOTE | 2018-10-06 10:49 | PN ---
Subjective - Subjective Date of Service: 10/06/18 Service Type: 74649 Hosp care 35 min high complexity Subjective: Nursing Report: Patient was visible on unit, no chemical restraints or PRNs. Slept overnight without incident. Attending group activities. CC: "I know they get messages about me Patient was seen and evaluated by this provider. She was looking at staff and said " I know they received messages about me and are laughing about me" She remarked " I know that I have made people be less of Synagogue because of my actions" The patient was seen eating breakfast this morning. She reported having improved sleep. The patient reports attending and participating in day groups. Per nursing no behavioral issues or overnight events reported. Patient reported that she is tolerating medications without side effects. She denied suicidal ideation, intent or plan. She denied homicidal ideation intent or plan. She denied visual hallucinations. Objective - General Observations Appearance: Neat Appears Stated Age: Yes Stature: WNL, Thin Posture: WNL, Tense Eye Contact: Intense Behavior/Activity: Slowed - Interaction Observations Attitude Towards Examiner: Cooperative Stated Mood: Anxious Affect: Flat Speech Pattern/Tone: Delayed Thought Process: Blocking Thought Content: Preoccupation/Ruminations, Paranoid Thought Process: Lethality: Paranoid Ideation Hallucination Type: None Delusion Type: None, Reference - Cognitive Function Orientation: A&O x 4 Level of Consciousness: Awake Estimated Intelligence: Normal - Medication Compliance Cooperative with Inpatient Medication Regimen: Yes - Group Participation Participates in Group Activities: Yes Assessment - Assessment Merits Inpatient Hospitalization: For Immediate Safety Clinical Impression: 23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 Plan - Plan Treatment Plan: Name: CYDNEY HARRIS Birthdate: 1995 [id number] # The patient requires inpatient admission at this time to assure safety, receive treatment and work toward stabilization. # Q15 min observation # Patient was seen on the medical floor prior to admission and major medical causes were ruled out # Prior Psychiatric hospital records obtained and reviewed. #Increase Seroquel 200mg po qhs. #MMPI #Ativan 1mg Q6H #Discontinue Cogentin # Continue lithium 300mg BID. [place] level Vital Signs 10/05/18 10/05/18 10/05/18 11:55 16:53 18:50 Temperature Pulse Rate Respiratory 16 16 16 Rate Blood Pressure (mmHg) O2 Sat by Pulse Oximetry 10/05/18 10/06/18 10/06/18 21:42 07:26 10:06 Temperature 99.8 F Pulse Rate 89 Respiratory 16 16 16 Rate Blood Pressure 114/79 (mmHg) O2 Sat by Pulse 100 Oximetry Continued Medication Management: Continue Outpt Medication Medications: Current Medications Acetaminophen (Tylenol Tab*) 650 mg PO Q4H PRN PRN Reason: FEVER/PAIN [place] Carbonate ([place] Carbonate Tab*) 300 mg PO BID [facility] Last Admin: 10/06/18 10:06 Dose: 300 mg Lorazepam (Ativan Tab(*)) 1 mg PO 0300,0900,1500,2100 [facility] Last Admin: 10/06/18 10:06 Dose: 1 mg Melatonin (Melatonin) 3 mg PO BEDTIME PRN PRN Reason: SLEEP Last Admin: 10/05/18 21:42 Dose: 3 mg Quetiapine Fumarate (Seroquel Tab*) 100 mg PO BEDTIME [facility] Last Admin: 10/05/18 21:42 Dose: 100 mg - Discharge Plan Discharge Plan: Inpatient Hospitalization
[2018-10-06] MEDS ORDERED: OLANzapine TAB*ODT* 5 MG PO ONE (12:55)
[2018-10-06] MEDS ORDERED: QUEtiapine TAB* 100 MG PO SCH (21:00)
[2018-10-07] MEDS: LORazepam TAB(*) 1 MG PO SCH ×4 (03:00→21:15)
[2018-10-07] MEDS: Lithium Carbonate TAB* 300 MG PO SCH ×2 (08:55→21:15)
--- NOTE | 2018-10-07 11:35 | PN ---
Subjective - Subjective Date of Service: 10/07/18 Service Type: 93101 Hosp care 35 min high complexity Subjective: Nursing Report: Patient was visible on unit, no chemical restraints or PRNs. Slept overnight without incident. Attending group activities. CC: "I think I am better Patient was seen and evaluated by this provider in the common room. The patient reported she feels fine. Per staff report she said that she heard voices from her room overnight. When asked how things were going, she paused and gave a blank stare. She said that she no longer thinks the staff is recieving messages about her. She reported having better sleep last night. The patient reports attending and participating in day groups. Per nursing no behavioral issues or overnight events reported. Patient reported that she is tolerating medications without side effects. Objective - General Observations Appears Stated Age: Yes Stature: WNL, Thin Posture: WNL Eye Contact: Intense Behavior/Activity: Slowed - Interaction Observations Attitude Towards Examiner: Mistrustful Affect: Blunted Speech Pattern/Tone: Quiet Volume Thought Process: Coherent, Blocking Thought Content: Paranoid Thought Process: Lethality: Paranoid Ideation Hallucination Type: Auditory Delusion Type: Quaker - Cognitive Function Orientation: A&O x 4 Level of Consciousness: Awake Estimated Intelligence: Normal Ability to Make Reasonable Decisions: Mildly Impaired - Medication Compliance Cooperative with Inpatient Medication Regimen: Yes - Group Participation Participates in Group Activities: Yes Assessment - Assessment Merits Inpatient Hospitalization: For Stabilization Clinical Impression: 23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 Plan - Plan Treatment Plan: Name: CYDNEY HARRIS Birthdate: 1995 [id number] # The patient requires inpatient admission at this time to assure safety, receive treatment and work toward stabilization. # Q15 min observation # Patient was seen on the medical floor prior to admission and major medical causes were ruled out. # Prior Psychiatric hospital records obtained and reviewed. #Increase Seroquel 300mg po qhs. #MMPI #Ativan 1mg Q6H # Continue lithium 300mg BID. [place] level within normal limits. #Patient continues to remain disorganized and paranoid. Tentative discharge date is unknown at this time Laboratory Results Hemoglobin A1c 5.5 % (4.0-5.6) 10/06/18 14:05 [place] 0.50 mmol/L (0.6-1.2) L 10/06/18 14:05 Hemoglobin A1c 5.5 % (4.0-5.6) 10/06/18 14:05 Vital Signs 10/06/18 10/06/18 10/06/18 12:05 15:27 15:32 Temperature Pulse Rate Respiratory 16 16 15 Rate Blood Pressure (mmHg) O2 Sat by Pulse Oximetry 10/06/18 10/06/18 10/06/18 18:26 20:00 20:43 Temperature Pulse Rate Respiratory 16 16 16 Rate Blood Pressure (mmHg) O2 Sat by Pulse Oximetry 10/06/18 10/07/18 10/07/18 23:15 08:55 11:06 Temperature 97.4 F Pulse Rate 94 Respiratory 16 16 16 Rate Blood Pressure 115/81 (mmHg) O2 Sat by Pulse 100 Oximetry 10/07/18 11:21 Temperature Pulse Rate Respiratory 16 Rate Blood Pressure (mmHg) O2 Sat by Pulse Oximetry Continued Medication Management: Continue Outpt Medication Medications: Current Medications Acetaminophen (Tylenol Tab*) 650 mg PO Q4H PRN PRN Reason: FEVER/PAIN [place] Carbonate ([place] Carbonate Tab*) 300 mg PO BID [facility] Last Admin: 10/07/18 08:55 Dose: 300 mg Lorazepam (Ativan Tab(*)) 1 mg PO 0300,0900,1500,2100 [facility] Last Admin: 10/07/18 08:55 Dose: 1 mg Melatonin (Melatonin) 3 mg PO BEDTIME PRN PRN Reason: SLEEP Last Admin: 10/05/18 21:42 Dose: 3 mg Quetiapine Fumarate (Seroquel Tab*) 200 mg PO BEDTIME [facility] Last Admin: 10/06/18 20:44 Dose: 200 mg - Discharge Plan Discharge Plan: Inpatient Hospitalization
[2018-10-07] MEDS: QUEtiapine TAB* 300 MG PO SCH (21:16)
[2018-10-08] MEDS: LORazepam TAB(*) 1 MG PO SCH ×3 (03:00→20:52)
[2018-10-08] MEDS: Lithium Carbonate TAB* 300 MG PO SCH ×2 (08:13→20:52)
--- NOTE | 2018-10-08 09:42 | PN ---
Subjective - Subjective Date of Service: 10/08/18 Service Type: 35739 Hosp care 35 min high complexity Subjective: Nursing Report: Patient was visible on unit, no chemical restraints or PRNs. Slept overnight without incident. Attending group activities but is unable to concentrate. CC: "Okay Patient was seen and evaluated by this provider in the common room. The patient reported that she is less paranoid today and got 6 hours of sleep. She said that she would know if people were talking about her or sending messages about her. The patient reports attending and participating in day groups. Per nursing no behavioral issues or overnight events reported. Patient reported that she is tolerating medications without side effects. Objective - General Observations Appearance: Disheveled Appears Stated Age: Yes Stature: WNL, Thin Posture: WNL Eye Contact: Average, Intense Behavior/Activity: WNL - Interaction Observations Attitude Towards Examiner: Cooperative, Mistrustful Stated Mood: Anxious Affect: Blunted Speech Pattern/Tone: Quiet Volume Thought Process: Loose Associations Thought Content: Paranoid Thought Process: Lethality: Paranoid Ideation Hallucination Type: Auditory Delusion Type: Thought Withdrawal - Cognitive Function Orientation: A&O x 4 Level of Consciousness: Awake Cognition: WNL Estimated Intelligence: Normal Ability to Make Reasonable Decisions: Mildly Impaired - Medication Compliance Cooperative with Inpatient Medication Regimen: Yes - Group Participation Participates in Group Activities: Yes Assessment - Assessment Clinical Impression: 23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 Plan - Plan Treatment Plan: Name: CYDNEY HARRIS Birthdate: 1995 [id number] # The patient requires inpatient admission at this time to assure safety, receive treatment and work toward stabilization. # Q30 min observation with staff pass # Prior Psychiatric hospital records obtained from [place] and reviewed. #Continue Seroquel 300mg po qhs. #MMPI completed will follow results #Ativan 1mg BID # Continue lithium 300mg BID. [place] level within normal limits. #Patient shows improvement of thought organization and is less paranoid. #Family meeting for Saturday. Tentative Discharge Saturday if patient continues to show improvement. Laboratory Results Hemoglobin A1c 5.5 % (4.0-5.6) 10/06/18 14:05 [place] 0.50 mmol/L (0.6-1.2) L 10/06/18 14:05 Hemoglobin A1c 5.5 % (4.0-5.6) 10/06/18 14:05 Vital Signs 10/07/18 10/07/18 10/07/18 16:11 19:18 21:15 Temperature Pulse Rate Respiratory 16 16 16 Rate Blood Pressure (mmHg) O2 Sat by Pulse Oximetry 10/07/18 10/08/18 10/08/18 23:20 07:18 08:13 Temperature 97.8 F Pulse Rate 91 Respiratory 16 16 16 Rate Blood Pressure 107/73 (mmHg) O2 Sat by Pulse 100 Oximetry 10/08/18 10/08/18 10:10 12:24 Temperature Pulse Rate Respiratory 16 16 Rate Blood Pressure (mmHg) O2 Sat by Pulse Oximetry Continued Medication Management: Continue Outpt Medication Medications: Current Medications Acetaminophen (Tylenol Tab*) 650 mg PO Q4H PRN PRN Reason: FEVER/PAIN [place] Carbonate ([place] Carbonate Tab*) 300 mg PO BID [facility] Last Admin: 10/08/18 08:13 Dose: 300 mg Lorazepam (Ativan Tab(*)) 1 mg PO 0300,0900,1500,2100 [facility] Last Admin: 10/08/18 08:13 Dose: 1 mg Melatonin (Melatonin) 3 mg PO BEDTIME PRN PRN Reason: SLEEP Last Admin: 10/05/18 21:42 Dose: 3 mg Quetiapine Fumarate (Seroquel Tab*) 300 mg PO BEDTIME [facility] Last Admin: 10/07/18 21:16 Dose: 300 mg - Discharge Plan Discharge Plan: Inpatient Hospitalization
--- NOTE | 2018-10-08 16:20 | PN ---
BSU: Group Therapy Note - Service Type Service Type: [id number] Group Psychotherapy - Group Participation Patient Participating in Group: Yes Level of Group Participation: Attentive, Spontaneously Participate Relatedness to Group: Defended - Lelia had good questions and participated well. She was pleasant and supportive of others in the group., Well Related
[2018-10-08] MEDS: QUEtiapine TAB* 300 MG PO SCH (20:53)
[2018-10-09] MEDS: LORazepam TAB(*) 1 MG PO SCH (08:24)
[2018-10-09] MEDS: Lithium Carbonate TAB* 300 MG PO SCH ×2 (08:24→21:42)
--- NOTE | 2018-10-09 12:03 | PN ---
Subjective - Subjective Date of Service: 10/09/18 Service Type: 27849 Hosp care 35 min high complexity Subjective: CC: "Good Patient was seen and evaluated by this provider in the common room The patient reported she feels safe on the unit and is planing to finish MMPI questions. She reported having an adequate appetite and sleep. The patient reports attending and participating in day groups. Per nursing no behavioral issues or overnight events reported. Patient reported that she is tolerating medications without side effects. Objective - General Observations Appearance: Disheveled Appears Stated Age: Yes Stature: Thin Posture: WNL Eye Contact: Average Behavior/Activity: Slowed - Interaction Observations Attitude Towards Examiner: Cooperative Stated Mood: Euthymic Affect: Blunted Speech Pattern/Tone: Clear, Quiet Volume Thought Process: Coherent Thought Content: Paranoid Thought Process: Lethality: Paranoid Ideation Hallucination Type: Denies Delusion Type: None - Cognitive Function Orientation: A&O x 4 Level of Consciousness: Awake Cognition: WNL Insight: WNL Judgment Within Normal Limits: No Ability to Make Reasonable Decisions: Mildly Impaired - Medication Compliance Cooperative with Inpatient Medication Regimen: Yes - Group Participation Participates in Group Activities: Yes Assessment - Assessment Merits Inpatient Hospitalization: For Immediate Safety, For Stabilization Clinical Impression: 23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 She is showing improvement of thought process and less delay in response to questions. Plan - Plan Treatment Plan: Name: CYDNEY HARRIS Birthdate: 1995 [id number] # The patient requires inpatient admission at this time to assure safety, receive treatment and work toward stabilization. # Q30 min observation with staff pass # Prior Psychiatric hospital records obtained from [place] and reviewed. #Continue Seroquel 300mg po qhs. #MMPI in process of being completed #Ativan 0.5 mg BID # Continue lithium 300mg BID. Deloit level within normal limits. #Patient shows improvement of thought organization and is less paranoid. #Family meeting Saturday at 11am #Family meeting for Saturday. Tentative Discharge Saturday if patient continues to show improvement. Continued Medication Management: Continue Outpt Medication Medications: Current Medications Acetaminophen (Tylenol Tab*) 650 mg PO Q4H PRN PRN Reason: FEVER/PAIN Deloit Carbonate (Deloit Carbonate Tab*) 300 mg PO BID MALISSA Last Admin: 10/09/18 08:24 Dose: 300 mg Lorazepam (Ativan Tab(*)) 0.5 mg PO 0900,2100 [facility] Melatonin (Melatonin) 3 mg PO BEDTIME PRN PRN Reason: SLEEP Last Admin: 10/05/18 21:42 Dose: 3 mg Quetiapine Fumarate (Seroquel Tab*) 300 mg PO BEDTIME MALISSA Last Admin: 10/08/18 20:53 Dose: 300 mg - Discharge Plan Discharge Plan: Inpatient Hospitalization
[2018-10-09] MEDS: LORazepam TAB(*) 0.5 MG PO SCH (21:42)
[2018-10-09] MEDS: QUEtiapine TAB* 300 MG PO SCH (21:42)
[2018-10-10 07:43] LABS: Albumin 4.2 g/dL (3.2-5.2); Albumin/Globulin Ratio 1.6 (1-3); BUN/Creatinine Ratio 19.7 (8-20); Calcium 9.6 mg/dL (8.6-10.3); EGFR African American 133.1 (>60); Globulin 2.6 g/dL (2-4); Potassium 4.1 mmol/L (3.5-5.0); Total Bilirubin 0.5 mg/dL (0.2-1.0); Total Protein 6.8 g/dL (6.4-8.9)
[2018-10-10 08:10] LABS: Lithium 0.45 mmol/L (0.6-1.2)
[2018-10-10] MEDS: LORazepam TAB(*) 0.5 MG PO SCH (08:19)
[2018-10-10] MEDS: Lithium Carbonate TAB* 300 MG PO SCH (08:20)
[2018-10-10 08:35] VITALS: BP 112/75
--- NOTE | 2018-10-10 11:32 | DS ---
Subjective - Subjective Service Types: [id number] [facility] Day Mgmt complex over 30 min Discharge Date: 10/10/18 Subjective: CC: "I am ready" Patient stated she is ready for discharge. Family meeting went well and parents confirm she is at her baseline. She reported getting good sleep overnight. 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 While in the hospitalist service, she was seen by Psychiatry twice and she was seen by Neurology and Abilify was replaced by quetiapine. The patient was felt by Dr. Mcknight to just be experiencing symptoms of catatonia. The patient improved in the hospitalist service and on 10/04/18, she was communicating verbally, ambulating without difficulty. She was transferred to the behavioral service unit for continuation of her psychiatric care. She was admitted on emergency status. HISTORY OF PRESENT ILLNESS: The patient relates that last month while at school at the [employer], she was preparing for an exam that had both written and an oral components; she procrastinated and she started staying up late to study, she was able to stay up for about 3 nights to do work, she did not feel tired, she became increasingly paranoid, she started verbalizing grandiose and mormon delusions, she felt she was God. She called her parents who live in [place], [place] to report that she was not feeling safe. The parents contacted her roommate, who then alerted emergency services. She was taken to [facility] in [place], [place], where she was psychiatrically admitted and treated for bipolar 1 with psychotic features and she was discharged after 2-1/2 weeks on Abilify and on trazodone. The patient' s parents drove to [place] and drove her back to their home in [place], [place]. The patient after about 5 days on the Abilify post discharge started experiencing symptoms of confusion, muscle stiffness, drooling, inability to communicate verbally, and akathisia. REVIEW OF PSYCHIATRIC SYMPTOMS: The patient reports this was her first manic episode with insomnia, decreased need for sleep, increased goal directedness, grandiosity, racing thoughts, and pressured speech. She denies previous depressive symptoms. The patient endorses excessive worrying, irritability, muscle tension, obsessive thoughts about perfection, and disappointment when she cannot live up to the high standards she set for herself. She has had occasional panic attacks. She denies social or performance anxiety. She denies any previous diagnosis of ADHD or learning disorder. She denies symptoms of eating disorder. She denies any history of trauma or abuse or PTSD symptoms. PAST MEDICAL HISTORY: Remarkable for seasonal allergies for which she occasionally takes Benadryl. She denies any history of head trauma with loss of consciousness, seizures, or surgeries. She is followed by Dr. Aby Wilson in [place], [place]. PAST SURGICAL HISTORY: Negative. This report is only to be considered final once signed by the Provider(s) as displayed in the "<Electronically Signed by >" field (s). Absence of a signature indicates the report is in a draft status and still needs to be finalized. In the event this document was created by someone other than the signing Provider, the individual initiating the document will be listed in the "Entered by:" or "Dictated by:" mane. FAMILY HISTORY: The patient denies any family history of psychiatric illnesses or completed suicide. PERSONAL AND SOCIAL HISTORY: The patient is the oldest of 4 children from an intact family with parents. Her parents live in [place] with the patient's 8-year-old sister, 23- year-old brother and his . The patient has a 18-year-old sister, who is attending [employer] in [place], [place]. The patient describes a happy childhood free of trauma or abuse. She did well in school. She graduated from [employer]. She then completed undergraduate studies at [employer]. She is currently attending the [employer] in [place] in a PhD program that she has 3 more years to complete. 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 She attends services regularly. She identifies as heterosexual. She has neither dated nor being sexually active. 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 REVIEW OF MEDICAL SYMPTOMS: Negative. PHYSICAL EXAMINATION Please refer to Dr. Baxter's history and physical and subsequent progress notes on this patient while she was admitted in the hospitalist service. MENTAL STATUS EXAMINATION: Finds a thin-framed, 23-year-old white female, who looks her stated age. She is somewhat disheveled in her appearance. She is casually dressed in a T-shirt and pants. She makes intense eye contact, appears at times to be internally stimulated. She is cooperative with answering questions but has long latencies. Her affect is flat. Mood is euthymic. The patient moves somewhat slowly. Thoughts are linear and goal directed for the most part, but she endorses paranoid and hyperreligious delusions. She denies suicidal/homicidal ideation or urges to self-mutilate, and she contracts for safety. Insight and judgment are impaired. Impulse control is good in this setting. She is alert. She is oriented to time, place, and person. Attention, memory, and concentration are all poor. Fund of knowledge is adequate. Intelligence is estimated to be in normal average range. SUMMARY: A 23-year-old female, who was accepted as a transfer from the hospitalist service where she was treated for side effects of medication. The patient had her first psychiatric hospitalization the month prior and was discharged on Abilify and trazodone. The patient has diagnosis of bipolar 1 disorder, severe, most recent episode manic with psychotic features. She comes to our service on lithium 300 mg twice daily, quetiapine 100 mg nightly, lorazepam 1 mg p.o. q.6 hours p.r.n. for anxiety, benztropine 1 mg b.i.d. to prevent EPS, and melatonin 3 mg at bedtime. The patient denies any history of substance abuse. She also denies any family history of psychiatric illnesses or completed suicide. She describes stressors of having had withdraw recently from school because of her psychotic break. DIAGNOSTIC IMPRESSIONS: 1. Bipolar 1 disorder, most recent episode manic, with psychotic features. 2. Unspecified anxiety disorder. TREATMENT PLAN: Admit to mental health unit, 15-minute checks, full code status. Legal status is emergency. Initiate comprehensive milieu, individual, and group psychotherapeutic supports. Medication management will continue the current regimen of lithium, quetiapine, lorazepam, and benztropine. Discharge planning will involve coordination of aftercare with providers either locally or in [place] in concertation with her family. Diagnosis on Discharge: Bipolar I disorder, in partial remission. Condition at the time of discharge: At the time of discharge patient showed improvement of sleep and appetite. The patient was not a danger to self or others. The patient denied suicidal ideation , intent or plan. The patient denied homicidal targets, ideation, intent or plan. This patient participated in psychosocial rehabilitation and gained some insight into problems. The patient gained insight into mental illness, triggers, and treatment. The patient took medication as prescribed. The patient denied side effects of medication and objective signs of side effects were not evident. Therapy Resources were offered to the patient. Patient was given a supply of prescriptions at the time of discharge. The patient plans to attend follow up care with the follow up arrangements that were discussed and put in place. Patient was asked to keep appointments as scheduled, take medication as prescribed, have routine follow up care with their primary care physician and refrain from any use of alcohol or drugs. Objective - Appearance Appearance: Thin Framed Dysmorphic Features: No Hygiene: Normal Grooming: Well Kept - Behavior Psychomotor Activities: Normal Exhibits Abnormal Movement: No - Attitude and Relatedness Attitude and Relatedness: Cooperative Eye Contact: Good - Speech Quality: Unpressured Latencies: Normal Quantity: Appropriate - Mood Patient's Decription of Mood: "Good" - Affect Observed Affect: Non-labile Affect Consistent with: Euthymia - Thought Process Patient's Thought Process: Coherent Thought Content: No Passive Wish, No Suicidal Planning, No Homicidal Ideation, No Paranoid Ideation - Sensorium Experiencing Hallucinations: No, Sensorium is Clear Type of Hallucinations: Visual: No, Auditory: No, Command: No - Level of Consciousness Level of Consciousness: Alert Orientation: Yes Intact, Yes Orientated to Time, Yes Orientated to Place, Yes Orientated to Person - Impulse Control Impulse Control: Intact - Insight and Judgement Insight and Judgement: Good - Group Participation Particating in Group Activities: Yes - Medication Management Medication Management Adherence: Yes Treatment Course & Assessment Clinical Course & Impression: Hospital course part A: 23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 She is showing improvement of thought process and less delay in response to questions. Hospital course part B: Labs ordered included CBC, CMP, UDS, TSH, HBA1c, TSH, Toxicology screen, Urine analysis, and lipid profile. [place] level Labs were reviewed and did not require the need for further evaluation. Vital signs were monitored during the course of admission. MMPI was ordered and indicated features of psychotic features and patti consistent with her clinical presentation The patient was admitted to the adult behavioral unit and placed on 15 minute check for safety. At a later time the patient was on Q30 minute observation and staff pass privileges. With those limits being extended , there were no occurrence of behavioral incidents. The patient did well on the unit and went to groups. Interacted with peers had adequate sleep and regular appetite. Tolerated medication changes without side effects. Group therapy and services were offered. The risks, benefits, and alternative treatment options were discussed as well as of the risks of refusing treatment. Treatment associated risks discussed. After this discussion and made an acknowledgement of this understanding. Follow up care appointments were put in place for follow up care within 7 days of discharge. Improvements in patient from the time of admission include: Improved affect, sleep and decrease in anxiety. No longer showing psychotic features and no longer having feelings of hopelessness. The patient expressed readiness for discharge home. The patient presents with a broader range of affect, and the absence of depressed mood, delusions, perceptual disturbances. The patient denied suicidal and or homicidal ideation intent or plan. Overall, the patient responded well to inpatient treatment as evidenced by their report of strengthening of coping mechanisms, reduced distress, and more positive outlook on circumstances. Of note there was an improvement of recognizing how emotional state can effect mood and behavior. Patient still had trouble with concentration. Safety precautions were put in place which included involving the patient and their family to closely monitor for changes in mental state. In addition, implementing follow up care, screening for the need to remove/securing firearms , weapons and stockpile of medications. Patient/ family instructed to immediately call 911 should any safety concerns arise. AIMS was performed and insignificant for involuntary movement disorders. B-HCG is negative for current . She was informed of the risks her current treatment has on in the event that she becomes in the future and was advised to talk with her outpatient healthcare provider about starting or stopping medications during . The patient was advised of the 24 hour / 7 days a week availability of the emergency room and to call 911 in the event of an emergency such as being suicidal and/ or homicidal. The patient was informed of the contact information for [facility], Suicide Prevention and Crisis Services, National Suicide Prevention Lifeline, [facility], Alcoholics Anonymous, and [facility]. [place] levels were taken and were 0.45. She was advised to follow up with lithium levels and was advised about medications she can not take with lithium. Patient was treated on the medical unit for catatonia which resolved with ativan challenge. Medications started included lithium 300mg BID and seroquel 300mg at nighttime. She was started on ativan 1mg TID and tapered down to 05mg BID and discontinued. A Family meeting took place and parents agree she is at her baseline. She plans to take this month off and return to school next semester. She plans to live at home in [place]. She no longer was paranoid and was responsive to questions in a more alert manner. She did not display signs of patti. She was given melatonin 3mg at bedtime for sleep. Patient will be discharged to her home in [place]. Follow up appointment at family services in [place] Patient informed of follow up appointment times. See more details for follow of care in discharge plan. Risk factors: Age, single, history of mental illness. Protective factors: Currently no suicidal ideation, intent or plan. Islam, No prior history of suicide attempt. Has strong support system. No history of service. Currently no feelings of hopelessness, not in an occupation of social isolation, doesnt have multiple medical conditions, no family history of suicide, doesnt have access to firearms. Doesnt have command hallucinations and or psychotic features at this time. No history of substance abuse. No history of alcohol abuse. Not a anniversary of a loss of a loved one. No changes in relationship status, housing, job, or school. Currently future orientated. Patient engaged in treatment and compliant with medication. 10/10/18 07:13 Sodium 136 Potassium 4.1 Chloride 106 Carbon Dioxide 27 Anion Gap 3 BUN 13 Creatinine 0.66 Est GFR ( Amer) 133.1 Est GFR (Non-Af Amer) 110.0 BUN/Creatinine Ratio 19.7 Glucose 87 Calcium 9.6 Total Bilirubin 0.50 AST 21 ALT 16 Alkaline Phosphatase 43 Total Protein 6.8 Albumin 4.2 Globulin 2.6 Albumin/Globulin Ratio 1.6 [place] 0.45 L Vital Signs Temp Pulse Resp BP Pulse Ox 97.6 F 81 17 112/75 100 10/10/18 07:42 10/10/18 07:42 10/10/18 09:59 10/10/18 07:42 10/10/18 07:42 Merits Inpatient Hospitalization: No Clear for Discharge: Adequate Clinical Respons Discharge Planning - Discharge Planning Discharge Plan: Outpatient Follow Up Outpatient Program: [facility] Recommendations for Continuing Care: Medication Management Medications: Current Medications Acetaminophen (Tylenol Tab*) 650 mg PO Q4H PRN PRN Reason: FEVER/PAIN [place] Carbonate ([place] Carbonate Tab*) 300 mg PO BID [facility] Last Admin: 10/10/18 08:20 Dose: 300 mg Lorazepam (Ativan Tab(*)) 0.5 mg PO 0900,2100 [facility] Last Admin: 10/10/18 08:19 Dose: 0.5 mg Melatonin (Melatonin) 3 mg PO BEDTIME PRN PRN Reason: SLEEP Last Admin: 10/05/18 21:42 Dose: 3 mg Quetiapine Fumarate (Seroquel Tab*) 300 mg PO BEDTIME [facility] Last Admin: 10/09/18 21:42 Dose: 300 mg Discharge Planning: Prescriptions provided for discharge [x] Yes [] No Follow up care details as per social work arrangements. Patient response to discharge plan: [] eager for discharge [x] agreeable with discharge plan [] ambivalent about discharge [] disagrees with discharge today
== END 2018-10-10 11:45 | disposition home or self-care (01) | DRG 885 ==
LOC: BSU 15:41
PROVIDERS: ADMIT Psychiatry & Neurology Psychiatry; ATTEND Psychiatry & Neurology Psychiatry
PROC: GZHZZZZ Group Psychotherapy (ICD-10-PCS; principal; 2018-10-04)
DX: F31.2 Bipolar disorder, current episode manic severe with psychotic features (principal); G47.00 Insomnia, unspecified; J30.2 Other seasonal allergic rhinitis; F41.9 Anxiety disorder, unspecified
CPT/HCPCS: 36415; 80053; 80178; 83036; 90853; 99222; 99233; 99238; A9270-GY